=== PATIENT | male | born 2000 | race Caucasian/White ===

== ENCOUNTER 2020-05-19 17:07 | Emergency (ER) | payer MEDICAID, SELFPAY ==
[2020-05-19 17:33] VITALS: BP 132/69; PULSE 80; RESP 16; TEMP 36.6; O2SAT 100; BMI 35.9
--- NOTE | 2020-05-19 21:06 | ED_ITS ---
HPI - Abdominal Pain General Chief Complaint: Abdominal Pain Stated Complaint: abdominal pain Time Seen by Provider: 05/19/20 21:06 Source: patient Mode of arrival: ambulatory Limitations: no limitations History of Present Illness HPI narrative: 19 y/o healthy male presenting with upper abdominal pain along with nausea and vomiting after eating for the last 3 days. He states after he eats he has pain and often vomits. He states the pain is burning and worse after eating and when laying down. He denies fever, chills, diarrhea. No sick contacts, no exposure to spoiled food. No recent travel. MD elicited complaint: abdominal pain Related Data Previous Rx's Medication Instructions Recorded ondansetron HCl [Zofran] 4 mg PO Q8H PRN #10 tab 05/19/20 pantoprazole [Protonix] 40 mg PO DAILY #14 tab 05/19/20 Allergies Allergy/AdvReac Type Severity Reaction Status Date / Time bee pollen [BEE STINGS] Allergy Unknown SWELLING Verified 05/19/20 17:35 Review of Systems Review of Systems Constitutional: No Fever, No Chills ENT/Mouth: No sore throat, No Rhinorrhea, No Swallowing Difficulty Eyes: No Eye Pain, No Swelling, No Redness Cardiovascular: + Chest Pain, No SOB, No Orthopnea, No Edema Respiratory: No Cough, No Sputum, No Wheezing, No dyspnea Gastrointestinal: + Nausea, + Vomiting, No Diarrhea, + abdominal Pain, No Hematochezia, No Melena Genitourinary: No Dysuria, No Urinary Frequency, No Hematuria Musculoskeletal: No joint pain, No Myalgias Skin: No Skin Lesions, No rash Neuro: No Weakness, No Numbness, No Dizziness, No Headache Heme/Lymph: No Bruising, No Lymphadenopathy Physical Exam Vital Signs: Vital Signs: Last Vital Signs Temp 98 F 05/19/20 17:33 Pulse 80 05/19/20 17:33 Resp 16 05/19/20 17:33 BP 132/69 05/19/20 17:33 Pulse Ox 100 05/19/20 17:33 Body Mass Index 35.9 Appearance: Alert. Oriented X3. No acute distress. Eyes: Pupils equal, round and reactive to light. ENT: Pharynx normal. Neck: Normal inspection. Neck supple. CVS: Normal heart rate and rhythm. Pulses normal. Respiratory: No respiratory distress. Breath sounds normal. Abdomen: Soft, epigastric and RUQ tenderness. normal +BS x4. no rebound or guarding Skin: Skin warm and dry. Normal skin color. Normal skin turgor. No rashes. Extremities: No lower extremity edema. Neuro: Oriented X 3. No motor deficit. No sensory deficit. Course Course Course Narrative: 19 y/o male presenting with epigastric pain, N/V x3 days. Worse after eating and laying flat. Concern for gastritis with GERD. Mild RUQ/epigastric tenderness on exam. Will check LFTs to r/o gallbladder etiology. Zofran and GI cocktail ordered. Reevaluation(s) Reevaluation #1: LFTs elevated 300's with mild elevation of Tbili/Dbili, ALP normal. RUQ U/S pending. Reevaluation #2: RUQ showed gallstones without evidence of cholecystitis. He feels improved after GI cocktail, IVF and zofran. Unclear etiology of transaminitis. Hepatitis panel ordered. Spoke with the patient about the results of his lab tests. He agrees to follow up with his doctor to get these repeated. He also agrees to follow up with GI doctor. He is tolerating PO and not having a ny current pain or nausea. He is stable for discharge. Advised to return if pain or vomiting persist. MDM - Abdominal Pain Lab Data Result diagrams: 05/19/20 21:22 05/19/20 21:22 Labs: Lab Results 05/19/20 05/19/20 Range/Units 21:22 21:22 WBC 8.2 (4.8-10.8) X10*3/uL RBC 4.83 (4.60-5.80) X10*6/uL Hgb 14.9 (14.0-18.0) g/dl Hct 44.5 (42-52) % MCV 92.1 (80-98) fL MCH 30.8 (27.0-33.0) pg MCHC 33.5 (31.0-36.0) g/dl RDW 11.9 (11.0-16.0) % Plt Count 285 (160-400) X10*3/uL MPV 10.0 (9.4-12.4) fL Immature Gran % (Auto) 0.4 (0.0-0.4) % Neut % (Auto) 76.2 H (45-73) % Lymph % (Auto) 15.2 L (20-40) % [place] % (Auto) 6.7 (2-11) % Eos % (Auto) 1.0 (0-4) % Baso % (Auto) 0.5 (0-2) % Lymph # (Auto) 1.2 (1.2-4.9) X10*3/uL [place] # (Auto) 0.6 (0.1-1.2) X10*3/uL Eos # (Auto) 0.1 (0.0-0.4) X10*3/uL Baso # (Auto) 0.0 (0.0-0.2) X10*3/uL Abs Immat Gran (auto) 0.03 (0.00-0.03) X10*3/uL Absolute Neuts (auto) 6.2 (2.0-8.3) X10*3/uL Absolute Nucleated RBC 0.000 (0.0-0.012) X10*3/uL Nucleated RBC % (auto) 0.0 (0.0-0.2) /100WBC Sodium 139 (135-145) mmol/L Potassium 4.1 (3.3-5.1) mmol/l Chloride 104 (96-108) mmol/L Carbon Dioxide 25 (22-29) mmol/L Anion Gap 14 (12-20) BUN 10 (9-16) mg/dL Creatinine 0.83 (0.5-1.4) mg/dL Estim Creat Clear Calc 180.5 Estimated GFR > 60 Random Glucose 97 (60-115) mg/dL Calcium 9.4 (8.4-10.2) mg/dL Total Bilirubin 1.2 H (0.0-1.0) mg/dL Direct Bilirubin 0.6 H (0.0-0.5) mg/dL AST 334 H (5-37) U/L ALT 367 H (0-40) U/L Alkaline Phosphatase 111 (39-117) U/L Total Protein 7.3 (6.5-8.0) g/dL Albumin 4.6 (3.5-5.0) g/dL Lipase 29 (8-78) U/L Discharge Plan Discharge Clinical Impression: Gallstones, Elevated liver enzymes Gastritis Qualifiers: Gastritis type: unspecified gastritis Chronicity: acute Gastritis bleeding: without bleeding Qualified Code(s): K29.00 - Acute gastritis without bleeding Patient Disposition: Home, Self-Care Instructions: Gastritis (ED), Gallstones (ED) Additional Instructions: Your lab work today showed an elevation in your liver enzymes. You need to follow up with your doctor this week for repeat labs. Your ultrasound showed gallstones but no signs of infection or blockage. You should follow up with a GI doctor as well. Stick to a bland diet. Avoid acidic, fatty and greasy foods. Take the medications as prescribed. Do not lay down for 30 minutes after eating. If your vomiting and abdominal pain persist, come back to the ER for further evaluation. Prescriptions: New pantoprazole [Protonix] 40 mg tablet,delayed release (DR/EC) 40 mg PO DAILY Qty: 14 RF: 0 ondansetron HCl [Zofran] 4 mg tablet 4 mg PO Q8H PRN (Reason: nausea and vomiting) Qty: 10 RF: 0 Referrals: Fernando Concepcion MD [Physician] - 3 days [facility] Past Medical History Attestation statement: The following information was validated with the patient. Social History Social History Advance Directives: No Advance Directives Information Provided: No
[2020-05-19] MEDS: Lidocaine HCl Viscous 2 % 15 ML SOLUTION MUCOUS MEM (21:27)
[2020-05-19] MEDS: ondansetron HCL 4 MG/2 ML VIAL IVPUSH (21:27)
[2020-05-19] MEDS: Magnesium Hydrox/Alum Hydrox 30 ML ORAL.SUSP PO (21:27)
[2020-05-19] MEDS: 0.9 % Sodium Chloride 1,000 ML 999 ML IVCONT (21:27)
[2020-05-19] MEDS: Omeprazole 20 MG CAPSULE.DR PO (21:28)
[2020-05-19 21:30] LABS: Basophils Percent Auto 0.5 % (0-2); Eosinophils Absolute Auto 0.1 X10*3/uL (0.0-0.4); Hematocrit 44.5 % (42-52); Hemoglobin 14.9 g/dl (14.0-18.0); Imm Gran Abs Auto 0.03 X10*3/uL (0.00-0.03); Imm Gran Pct Auto 0.4 % (0.0-0.4); Lymphocytes Absolute Auto 1.2 X10*3/uL (1.2-4.9); Lymphocytes Percent Auto 15.2 % (20-40); MANUAL DIFF FLAG NO; Mean Corpuscular HGB Conc 33.5 g/dl (31.0-36.0); Mean Corpuscular Hemoglobin 30.8 pg (27.0-33.0); Mean Corpuscular Volume 92.1 fL (80-98); Monocytes Absolute Auto 0.6 X10*3/uL (0.1-1.2); Monocytes Percent Auto 6.7 % (2-11); Neutrophils Absolute Auto 6.2 X10*3/uL (2.0-8.3); Neutrophils Percent Auto 76.2 % (45-73); Platelet Count 285 X10*3/uL (160-400); Red Blood Count 4.83 X10*6/uL (4.60-5.80); Red Cell Distribution Width 11.9 % (11.0-16.0); White Blood Count 8.2 X10*3/uL (4.8-10.8)
[2020-05-19 22:12] LABS: Alanine Aminotransferase 367 U/L (0-40); Albumin Level 4.6 g/dL (3.5-5.0); Alkaline Phosphatase 111 U/L (39-117); Anion Gap 14 (12-20); Aspartate Amino Transferase 334 U/L (5-37); Bilirubin Direct 0.6 mg/dL (0.0-0.5); Bilirubin Total 1.2 mg/dL (0.0-1.0); Blood Urea Nitrogen 10 mg/dL (9-16); Calcium 9.4 mg/dL (8.4-10.2); Carbon Dioxide 25 mmol/L (22-29); Chloride 104 mmol/L (96-108); Creatinine Clr Calc Pharmacy 180.5; Estimated Glomerular Filt Rate > 60; Glucose Random 97 mg/dL (60-115); Lipase 29 U/L (8-78); Potassium 4.1 mmol/l (3.3-5.1); Sodium 139 mmol/L (135-145); Total Protein 7.3 g/dL (6.5-8.0)
--- NOTE | 2020-05-19 22:19 | US_ITS ---
EXAMINATION: US ABDOMEN LIMITED CLINICAL INFORMATION: Epigastric pain, nausea/vomiting and elevated LFTs. COMPARISON: None TECHNIQUE: Real-time imaging of the right upper quadrant abdominal viscera. FINDINGS: PANCREAS: The visualized proximal portion of the pancreas is unremarkable. The distal portion is obscured secondary to overlying bowel gas. LIVER: The liver is normal in size. The liver contour is normal. There is diffusely increased liver parenchymal echogenicity, consistent with hepatic steatosis. No focal hepatic lesion. There is no intrahepatic biliary duct dilatation seen. GALLBLADDER: Gallstone is identified measuring up to 2.1 cm in size. No associated gallbladder wall thickening or pericholecystic fluid. Sonographic Coello sign is reportedly negative. COMMON BILE DUCT: Normal in caliber measuring 0.5 cm in diameter. RIGHT KIDNEY: No hydronephrosis. No renal calculi or focal parenchymal lesions. The kidney measures 10.1 cm in maximum dimension. FREE FLUID: None. US/US abdomen limited IMPRESSION: 1. Cholelithiasis without additional findings of cholecystitis. 2. Hepatic steatosis.
--- NOTE | 2020-05-19 22:33 | PC.NURSE ---
Xray being obtained at this time.
--- NOTE | 2020-05-19 23:56 | PC.NURSE ---
HEPATITIS PANEL ORDER ENTERED BY SIMEON (PROVIDER). LAB CONTACTED, AWARE OF ADD-ON ORDER. PLAN TO DISCHARGE HOME. OTHER LABS UNREMARKABLE AT THIS TIME. PT AWARE OF CARE PLAN.
[2020-05-20 04:26] LABS: HBS Num1 2.29 mIU/mL (0-7.99); HBc Num1 0.03 S/CO (0.00-0.79); HBsAGNum1 0.17 S/CO (0.00-0.99); Hepatitis B Core Antibody Nonreactive (Nonreactive); Hepatitis B Surface Antigen Negative (Negative); ~HepC Num1 0.15 S/CO (0.00-0.79); ~Hepatitis B Surface Antibody NONREACTIVE (Nonreactive); ~Hepatitis C Antibody Nonreactive (Nonreactive)
[2020-05-21 09:55] LABS: Hepatitis A Antibody IgM 0.18 Index (0-0.79); ~Hepatitis A Antibody IgM Nonreactive (Nonreactive)
== END 2020-05-20 00:52 | disposition home or self-care (01) ==
PROVIDERS: Physician Assistant; Emergency Provider Internal Medicine
DX: K80.80 Other cholelithiasis without obstruction (principal); K29.00 Acute gastritis without bleeding; R79.89 Other specified abnormal findings of blood chemistry; R10.9 Unspecified abdominal pain; Z79.899 Other long term (current) drug therapy
CPT/HCPCS: 36415; 76705; 80048; 80076; 83690; 85025; 86704; 86706; 86709; 86803; 87340; 96361; 96374; 99283; 99284; J2405

== ENCOUNTER 2020-06-06 17:41 | Emergency (ER) | payer MEDICAID, SELFPAY ==
[2020-06-06 17:42] VITALS: BP 135/58; PULSE 65; RESP 16; TEMP 36.7; O2SAT 99; BMI 33.0
[2020-06-06 20:06] VITALS: BP 112/62; PULSE 61; RESP 16; TEMP 36.7; O2SAT 99
--- NOTE | 2020-06-06 20:10 | CT_ITS ---
EXAMINATION: CT ABDOMEN AND PELVIS WITH CONTRAST CLINICAL INFORMATION: Epigastric pain. COMPARISON: May 19, 2020. TECHNIQUE: Contiguous axial thin section helical images of the abdomen and pelvis were performed following the administration of 85 mL of intravenous Omnipaque 300. The data set was reformatted in the coronal and sagittal planes and reviewed on an independent workstation. DLP: 669 mGy-cm. FINDINGS: The visualized lung bases are clear. The visualized portions of the heart are unremarkable. The liver is of normal size and attenuation without focal lesions nor intrahepatic biliary ductal dilation. There is a small focus of focal fatty infiltration and falciform ligament. A normal gallbladder is identified. There is no wall thickening or discernible pericholecystic fluid. The spleen, pancreas, adrenal glands are unremarkable. Both kidneys are of normal size and attenuation without hydronephrosis or nephrolithiasis. Following the administration of IV contrast, prompt symmetric nephrograms are displayed. There is no abdominal free fluid. There is neither mesenteric nor retroperitoneal lymphadenopathy. Normal unopacified loops of small and large bowel are identified. A normal appendix is identified. There is no pelvic free fluid. The urinary bladder is unremarkable. There is neither pelvic nor inguinal lymphadenopathy. Bone windows: Neither sclerotic nor lytic bone lesions are identified. CT/CT abdomen pelvis w con IMPRESSION: No evidence for acute abdominal or pelvic inflammatory or infectious processes. Automated exposure control (Care Dose) Adjustment of the mA and/or kv according to patient size (this includes techniques or standardized protocols for targeted exams where dose is matched to indication / reason for exam; i.e. extremities or head).
[2020-06-06] MEDS: 0.9 % Sodium Chloride 1,000 ML 999 ML IVCONT (20:54)
[2020-06-06] MEDS: Magnesium Hydrox/Alum Hydrox 30 ML ORAL.SUSP PO (21:03)
[2020-06-06] MEDS: Lidocaine HCl Viscous 2 % 15 ML SOLUTION MUCOUS MEM (21:03)
[2020-06-06 21:12] LABS: MANUAL DIFF FLAG NO
[2020-06-06 21:13] LABS: Basophils Percent Auto 0.5 % (0-2); Eosinophils Absolute Auto 0.1 X10*3/uL (0.0-0.4); Eosinophils Percent Auto 1.5 % (0-4); Hematocrit 42.1 % (42-52); Hemoglobin 14.3 g/dl (14.0-18.0); Imm Gran Abs Auto 0.02 X10*3/uL (0.00-0.03); Imm Gran Pct Auto 0.2 % (0.0-0.4); Lymphocytes Absolute Auto 1.6 X10*3/uL (1.2-4.9); Lymphocytes Percent Auto 19.1 % (20-40); Mean Corpuscular Volume 91.3 fL (80-98); Mean Platelet Volume 10.4 fL (9.4-12.4); Monocytes Absolute Auto 0.5 X10*3/uL (0.1-1.2); Monocytes Percent Auto 5.5 % (2-11); Neutrophils Percent Auto 73.2 % (45-73); Platelet Count 254 X10*3/uL (160-400); Red Blood Count 4.61 X10*6/uL (4.60-5.80); Red Cell Distribution Width 11.8 % (11.0-16.0); White Blood Count 8.2 X10*3/uL (4.8-10.8)
[2020-06-06 21:42] LABS: Alanine Aminotransferase 80 U/L (0-40); Albumin Level 4.5 g/dL (3.5-5.0); Alkaline Phosphatase 117 U/L (39-117); Anion Gap 15 (12-20); Aspartate Amino Transferase 34 U/L (5-37); Bilirubin Direct 0.2 mg/dL (0.0-0.5); Bilirubin Total 0.6 mg/dL (0.0-1.0); Blood Urea Nitrogen 7 mg/dL (9-16); Calcium 9.4 mg/dL (8.4-10.2); Carbon Dioxide 25 mmol/L (22-29); Chloride 106 mmol/L (96-108); Creatinine Clr Calc Pharmacy 149.7; Estimated Glomerular Filt Rate > 60; Glucose Random 78 mg/dL (60-115); Lipase 23 U/L (8-78); Potassium 4.3 mmol/l (3.3-5.1); Sodium 142 mmol/L (135-145)
[2020-06-06] MEDS: iohexoL 350 MG/ML 100 ML INFUS..BTL IV (22:13)
[2020-06-06 22:30] VITALS: BP 129/62; PULSE 52; RESP 18; TEMP 36.6; O2SAT 99
--- NOTE | 2020-06-06 22:39 | ED_ITS ---
HPI - Abdominal Pain General Chief Complaint: Abdominal Pain Stated Complaint: ABD PAIN Time Seen by Provider: 06/06/20 19:59 Source: patient Mode of arrival: ambulatory Limitations: no limitations History of Present Illness HPI narrative: patient comes to emergency room complaining of abdominal pain, epigastric, sharp, nonradiating. Patient states he was seen here 2 weeks ago, complaining of the same pain. Patient had an ultrasound done, showing a single gallstone that is 2.1 cm, not associated with gallbladder thickening , negative sonographic Coello sign Related Data Previous Rx's Medication Instructions Recorded ondansetron HCl [Zofran] 4 mg PO Q8H PRN #10 tab 05/19/20 pantoprazole [Protonix] 40 mg PO DAILY #14 tab 05/19/20 omeprazole 40 mg PO DAILY #20 cap 06/06/20 Allergies Allergy/AdvReac Type Severity Reaction Status Date / Time bee pollen [BEE STINGS] Allergy Unknown SWELLING Verified 05/19/20 17:35 Review of Systems Review of Systems Constitutional : No Weight loss, No Fever, No Chills, No Night Sweats, No Fatig ue, No Malaise ENT/Mouth : No Hearing loss, No Ear Pain, No Nasal Congestion, No Sinus Pain, No Hoarseness, No sore throat, No Rhinorrhea, No Swallowing Difficulty Eyes: No Eye Pain, No Swelling, No Redness, No Foreign Body, No Discharge, No Vision Changes Cardiovascular : No Chest Pain, No SOB, No Dyspnea on Exertion, No Orthopnea, No Edema, No Palpitations Respiratory : No Cough, No Sputum, No Wheezing, No Smoke Exposure, No Dyspnea Gastrointestinal : couple of episodes of vomiting and nausea, no diarrhea, epigastric pain, nonradiating Genitourinary : no irregular bleeding, No Dysuria, No Urinary Frequency, No Hematuria, No Urinary Incontinence, No Urgency, No Flank Pain, No Urinary Flow Changes, No Hesitancy Musculoskeletal : No joint pain, No Myalgias, No Joint Swelling Skin : No Skin Lesions, No rash Neuro : No Weakness, No Numbness, No Paresthesias, No Loss of Consciousness, No Dizziness, No Headache Psych : No Anxiety/Panic, No Depression, No SI/HI/AH/VH, No Social Issues, Heme/Lymph: No Bruising, No Bleeding,No Lymphadenopathy Endocrine : No Polyuria, No Polydipsia, No Temperature Intolerance Physical Exam Vital Signs: Vital Signs: Last Vital Signs Temp 97.8 F 06/06/20 22:30 Pulse 52 06/06/20 22:30 Resp 18 06/06/20 22:30 BP 129/62 06/06/20 22:30 Pulse Ox 99 06/06/20 22:30 Body Mass Index 33.0 Appearance: Alert. Oriented X3. No acute distress. Eyes: Pupils equal, round and reactive to light. ENT: Pharynx normal. Neck: Normal inspection. Neck supple. No lymph nodes noted. No crepitus CVS: Normal heart rate and rhythm. Pulses normal. Normal S1 and S2 Respiratory: No respiratory distress. Breath sounds normal. No Wheezing. No rales Abdomen: Soft and nontender. negative Coello sign Skin: Skin warm and dry. Normal skin color. Normal skin turgor. Extremities: No lower extremity edema. No lower extremity edema. No Lacerations. No Rash Neuro: Oriented X 3. No motor deficit. No sensory deficit. Moving all extermities. No slurred speech. Course Course Course Narrative: patient's LFTs improved I discussed the labs and CT with the patient, patient states that he feels better. It is possible that he has gastritis, however he does have recurrent symptoms, patient does have a 2.1 cm gallstone. Discussed with the patient that we can refer him for outpatient surgery consult, patient agrees with plan. MDM - Abdominal Pain Lab Data Result diagrams: 06/06/20 20:52 06/06/20 20:52 Labs: Lab Results 06/06/20 06/06/20 Range/Units 20:52 20:52 WBC 8.2 (4.8-10.8) X10*3/uL RBC 4.61 (4.60-5.80) X10*6/uL Hgb 14.3 (14.0-18.0) g/dl Hct 42.1 (42-52) % MCV 91.3 (80-98) fL MCH 31.0 (27.0-33.0) pg MCHC 34.0 (31.0-36.0) g/dl RDW 11.8 (11.0-16.0) % Plt Count 254 (160-400) X10*3/uL MPV 10.4 (9.4-12.4) fL Immature Gran % (Auto) 0.2 (0.0-0.4) % Neut % (Auto) 73.2 H (45-73) % Lymph % (Auto) 19.1 L (20-40) % [place] % (Auto) 5.5 (2-11) % Eos % (Auto) 1.5 (0-4) % Baso % (Auto) 0.5 (0-2) % Lymph # (Auto) 1.6 (1.2-4.9) X10*3/uL [place] # (Auto) 0.5 (0.1-1.2) X10*3/uL Eos # (Auto) 0.1 (0.0-0.4) X10*3/uL Baso # (Auto) 0.0 (0.0-0.2) X10*3/uL Abs Immat Gran (auto) 0.02 (0.00-0.03) X10*3/uL Absolute Neuts (auto) 6.0 (2.0-8.3) X10*3/uL Absolute Nucleated RBC 0.000 (0.0-0.012) X10*3/uL Nucleated RBC % (auto) 0.0 (0.0-0.2) /100WBC Sodium 142 (135-145) mmol/L Potassium 4.3 (3.3-5.1) mmol/l Chloride 106 (96-108) mmol/L Carbon Dioxide 25 (22-29) mmol/L Anion Gap 15 (12-20) BUN 7 L (9-16) mg/dL Creatinine 0.96 (0.5-1.4) mg/dL Estim Creat Clear Calc 149.7 Estimated GFR > 60 Random Glucose 78 (60-115) mg/dL Calcium 9.4 (8.4-10.2) mg/dL Total Bilirubin 0.6 (0.0-1.0) mg/dL Direct Bilirubin 0.2 (0.0-0.5) mg/dL AST 34 D (5-37) U/L ALT 80 H (0-40) U/L Alkaline Phosphatase 117 (39-117) U/L Total Protein 7.0 (6.5-8.0) g/dL Albumin 4.5 (3.5-5.0) g/dL Lipase 23 (8-78) U/L Imaging Data CT scan - abdomen: Radiologist's impression: The visualized lung bases are clear. The visualized portions of the heart are unremarkable. The liver is of normal size and attenuation without focal lesions nor intrahepatic biliary ductal dilation. There is a small focus of focal fatty infiltration and falciform ligament. A normal gallbladder is identified. There is no wall thickening or discernible pericholecystic fluid. The spleen, pancreas, adrenal glands are unremarkable. Both kidneys are of normal size and attenuation without hydronephrosis or nephrolithiasis. Following the administration of IV contrast, prompt symmetric nephrograms are displayed. There is no abdominal free fluid. There is neither mesenteric nor retroperitoneal lymphadenopathy. Normal unopacified loops of small and large bowel are identified. A normal appendix is identified. There is no pelvic free fluid. The urinary bladder is unremarkable. There is neither pelvic nor inguinal lymphadenopathy. Bone windows: Neither sclerotic nor lytic bone lesions are identified. CT/CT abdomen pelvis w con IMPRESSION: No evidence for acute abdominal or pelvic inflammatory or infectious processes. Discharge Plan Discharge Clinical Impression: Gastritis Patient Disposition: Home, Self-Care Instructions: Gastritis (ED) Additional Instructions: please call surgery tomorrow to schedule an appointment Prescriptions: New omeprazole 40 mg capsule,delayed release(DR/EC) 40 mg PO DAILY Qty: 20 RF: 0 No Action pantoprazole [Protonix] 40 mg tablet,delayed release (DR/EC) 40 mg PO DAILY Qty: 14 RF: 0 ondansetron HCl [Zofran] 4 mg tablet 4 mg PO Q8H PRN (Reason: nausea and vomiting) Qty: 10 RF: 0 Referrals: Dany Conklin MD [Physician] - 1 day [facility] Past Medical History Medical History (Updated 06/06/20 @ 22:49 by Juli Head MD) Gastritis Social History Social History Alcohol intake: current Alcohol intake frequency: holidays/special occasions only Smoking Status: Current every day smoker Smoked in Last 30 Days: Yes Use of substances other than those prescribed or required for medical reasons: Yes Substance Use Type: Marijuana Advance Directives: No Advance Directives Information Provided: Yes
== END 2020-06-06 22:59 | disposition home or self-care (01) ==
PROVIDERS: Emergency Provider Emergency Medicine
DX: K29.70 Gastritis, unspecified, without bleeding (principal); R10.13 Epigastric pain; F17.200 Nicotine dependence, unspecified, uncomplicated; F12.90 Cannabis use, unspecified, uncomplicated; Z71.6 Tobacco abuse counseling; Z79.899 Other long term (current) drug therapy
CPT/HCPCS: 36415; 74177; 80048; 80076; 83690; 85025; 96360; 99284; Q9967

== ENCOUNTER → 2020-06-11 10:41 | Outpatient (BNVA) | payer MEDICAID, SELFPAY | PROVIDERS: Visit Provider Surgery | DX: K80.20 Calculus of gallbladder without cholecystitis without obstruction (principal) | CPT/HCPCS: 99202 ==

== ENCOUNTER 2020-06-16 09:02 | Day surgery (SDC) | payer MEDICAID, SELFPAY ==
--- NOTE | 2020-06-13 13:24 | P.CONAN_ITS ---
Documented by User: Dina Earl 06/13/20 13:25 HPI - Anesthesia Eval Consult details Narrative: 19yo M for Cholecystectomy Laparoscopic,Poss Open [facility] Past Medical History Medical History Gastritis Family History Family History (Updated 06/11/20 @ 10:52 by NURIS Spencer) Maternal Grandmother History of lung cancer Social History Social History Alcohol intake: current Alcohol intake frequency: holidays/special occasions only Smoking Status: Current every day smoker Cigarettes Per Day: 4 Years Smoked: MONTHS Use of substances other than those prescribed or required for medical reasons: Yes Substance Use Type: Marijuana Substance Use Frequency: Occasionally Advance Directives: No Advance Directives Information Provided: Yes Meds Allergies Allergy/AdvReac Type Severity Reaction Status Date / Time bee pollen [BEE STINGS] Allergy Unknown SWELLING Verified 06/16/20 09:25 Exam Exam Date and Time: June 13, 2020 1324 Pertinent Lab Results Pertinent Lab Results: Laboratory Tests 06/06/20 06/06/20 20:52 20:52 WBC 8.2 Hgb 14.3 Hct 42.1 Plt Count 254 Sodium 142 Potassium 4.3 Chloride 106 Carbon Dioxide 25 BUN 7 L Creatinine 0.96 Assessment and Plan Assessment Anesthesia Assessment: Chart Reviewed Documented by User: Onesimo Sanz 06/16/20 10:25 [facility] Past Medical History Medical History Gastritis Family History Family History (Updated 06/11/20 @ 10:52 by NURIS Spencer) Maternal Grandmother History of lung cancer Family history of problems with anesthesia: No Surgical History History of Problems with Anesthesia: No Social History Social History Alcohol intake: current Alcohol intake frequency: holidays/special occasions only Smoking Status: Current every day smoker Cigarettes Per Day: 4 Years Smoked: MONTHS Use of substances other than those prescribed or required for medical reasons: Yes Substance Use Type: Marijuana Substance Use Frequency: Occasionally Advance Directives: No Advance Directives Information Provided: Yes Meds Allergies Allergy/AdvReac Type Severity Reaction Status Date / Time bee pollen [BEE STINGS] Allergy Unknown SWELLING Verified 06/16/20 09:25 Assessment and Plan Assessment Anesthesia Assessment: Anesthesia Plan Discussed and Chart Reviewed Final Anesthetic Review NPO: Yes ASA Class: II Final Preanesthetic Review: No Changes in Pt Med Stat, Meds/Allgs Chart Reviewed, Consent Obtained/Reviewed and Anes Risks/Benef Reviewed Patient Risk: Low Procedure Risk: Low Anesthetic Plan Anesthetic Plan: GA and Agree w/ Assess. and Plan Disposition: Standard PACU
[2020-06-16] VITALS (12 sets, daily range): BP systolic 115–148; BP diastolic 40–81; PULSE 49–67; RESP 16–20; TEMP 36.3–36.6; O2SAT 97–100; BMI 30.9
--- NOTE | 2020-06-16 10:12 | MHC.SHP ---
Pre-Procedural Eval Section A The patient is an INPATIENT: No Changes since office visit: Yes Patient answered all questions; No Cold of Flu in the past 2 weeks, No New Medical Problems and No Changes in Medication The History & Physical has been completed within 30 days and I have reviewed it.: Yes Section B Chief Complaint: Symptomatic cholelithiasis Allergies: Allergies Allergy/AdvReac Type Severity Reaction Status Date / Time bee pollen [BEE STINGS] Allergy Unknown SWELLING Verified 06/16/20 09:25 Plan Diagnosis/Plan: Unchanged Patient has been examined and remains a candidate for the planned procedure
--- NOTE | 2020-06-16 11:32 | PM.OP ---
Brief Operative Note Date of Service: 06/16/20 Pre-op diagnosis: Symptomatic cholelithiasis Post-op diagnosis: same Procedure: Laparoscopic cholecystectomy Implants: none Surgeon: Dany Conklin MD Oncology Physician Assistant: Shoshana Nix Estimated blood loss (mL): 5 Pathology: other (gallbladder) Condition: stable Disposition: PACU
--- NOTE | 2020-06-16 11:36 | P.OP_ITS ---
Operative Note Operative Note Date of Service: 06/16/20 Narrative: Preoperative diagnosis: Symptomatic cholelithiasis Postoperative diagnosis: Same Procedure: Laparoscopic cholecystectomy Surgeon: Dany Conklin MD Tape Keller Operator: COILN Solis Anesthesia: General endotracheal Indications for surgery: 20-year-old male patient presenting with complaints of abdominal pain in the right upper quadrant presenting to the emergency department for further evaluation. Patient was noted to be tender in the right upper quadrant with a positive Coello sign. Ultrasound of the abdomen revealed gallstones within the gallbladder. Operative findings: Patient is found to have some mild adhesions to the undersurface of the gallbladder and a large gallstone at the neck of the gallbladder. No evidence of acute cholecystitis. Specimen: Gallbladder Complications: None Estimated blood loss: 5 mL Procedure details: Patient was brought to the OR and placed in a supine position. After administering general anesthesia the patient's abdomen was prepped with ChloraPrep and draped in a sterile fashion. Local anesthesia consisting of 0.75% Sensorcaine with epinephrine was infiltrated in a periumbilical region. A 5 mm incision was made above the umbilicus in a transverse fashion. The Veress needle was then inserted while elevating abdominal cavity with towel clips. After positive drop test the abdomen was insufflated to a pressure of 15 mm of mercury. The Veress needle was then removed and a 5 mm trocar inserted. The camera was inserted in the abdomen explored. A 12 mm trocar was then placed in the epigastrium and 5 mm trocars x 2 were placed in the right upper quadrant. The patient was placed in reverse Trendelenburg positioning and rotated to the left. The gallbladder was grasped with the fundus and retracted cephalad.. The infundibulum Was then grasped and retracted away from the liver bed. The Dolphin dissected was then used to dissect the peritoneum off the infundibulum to reveal the junction with the cystic duct. Cystic artery was noted slightly medial and posterior to the cystic duct. After obtaining a critical view, the cystic duct was doubly clipped and divided. The cystic artery was then doubly clipped and divided. The gallbladder was then dissected off the liver bed using electrocautery with an L hook. Hemostasis was assured all times using the electrocautery. When the gallbladder is completely dissected off the liver bed, it was placed in an Endo-Catch bag and brought out through the epigastric incision. The gallbladder was sent to pathology for further examination. The abdomen was then re-examined. The liver bed was irrigated and suctioned dry. No bleeding or bile leak could be identified. CO2 was then evacuated and all trocars removed. Fascia was closed at the epigastric incision using a [id number] 0 Polysorb suture. Skin was closed in all incisions using a subcuticular 4 0 Polysorb suture. Sterile dressings consisting of Steri-Strips, 2 x 2 gauze, and Tegaderm were then applied. The patient tolerated the procedure well. Sponge instrument and needle counts reported as correct. The patient was transferred to PACU in stable condition.
[2020-06-16] MEDS: fentaNYL citrate/PF 100 MCG/2 ML VIAL 50 MCG IVPUSH (12:01)
[2020-06-16] MEDS: Ketorolac Tromethamine 15 MG/ML VIAL IVPUSH (12:05)
[2020-06-16] MEDS: ondansetron HCL 4 MG/2 ML VIAL IVPUSH (12:08)
[2020-06-16] MEDS: oxyCODONE HCl Immed Release 5 MG TABLET PO (12:20)
[2020-06-16] MEDS: Acetaminophen 325 MG TABLET 650 MG PO (12:20)
--- NOTE | 2020-06-16 14:01 | HO.POSTANES ---
Post Anesthesia Evaluation Post Anesthesia Evaluation Vital Signs: Vital Signs Temp Pulse Resp BP Pulse Ox 06/16/20 13:43 97.9 F 64 16 123/40 L 98 06/16/20 13:11 56 16 115/68 97 06/16/20 12:42 53 16 115/70 98 06/16/20 12:27 49 L 16 130/81 97 06/16/20 12:12 53 16 129/65 97 06/16/20 12:05 59 16 141/78 H 97 06/16/20 12:01 20 06/16/20 11:57 53 16 123/57 L 99 06/16/20 11:52 61 16 127/49 L 99 06/16/20 11:47 67 16 121/54 L 99 06/16/20 11:42 97.9 F 64 16 148/71 H 100 06/16/20 09:43 97.4 F 56 16 127/74 98 Anesthesia: General Endotracheal-GETA Mental Status: Awake Pain Control: Satisfactory Nausea/Vomiting: None Hydration: Adequate Anesthesia-Related Issues: No Anes. Related Issues
== END 2020-06-16 14:09 | disposition home or self-care (01) ==
PROVIDERS: Visit Provider Surgery
PROC: 0FT44ZZ Resection of Gallbladder, Percutaneous Endoscopic Approach (ICD-10-PCS; CPT 47562; principal; 2020-06-16 10:20)
DX: K80.10 Calculus of gallbladder with chronic cholecystitis without obstruction (principal)
CPT/HCPCS: 47562; 88304; J1100; J1885; J2405; J3010

== ENCOUNTER 2020-06-23 16:24 | Outpatient (REF) | payer MEDICAID, SELFPAY | END 2020-06-23 16:25 | disposition home or self-care (01) | LOC: HO.LAB 16:24 | PROVIDERS: Visit Provider Internal Medicine | DX: Z20.828 Contact with and (suspected) exposure to other viral communicable diseases (principal) | CPT/HCPCS: C9803; U0003 ==

== ENCOUNTER → 2020-06-26 10:55 | Outpatient (BNVA) | payer MEDICAID, SELFPAY | PROVIDERS: Visit Provider Surgery | DX: Z48.815 Encounter for surgical aftercare following surgery on the digestive system (principal); Z87.19 Personal history of other diseases of the digestive system | CPT/HCPCS: 99212 ==

== ENCOUNTER 2021-04-20 15:34 | Outpatient (REF) | payer MEDICAID, SELFPAY | END 2021-04-20 15:35 | disposition home or self-care (01) | LOC: HO.LAB 15:34 | PROVIDERS: Visit Provider Internal Medicine | DX: Z20.822 Contact with and (suspected) exposure to COVID-19 (principal) | CPT/HCPCS: C9803; U0003; U0005 ==